=== PATIENT | male | born 1960 ===

== ENCOUNTER 2021-07-11 09:26 | Inpatient (IN) ==
[2021-07-11] MEDS ORDERED: Ipratropium/Albuterol Neb 3 ML ONE (09:30)
[2021-07-11] MEDS ORDERED: methylPREDNISolone 125 MG/2 ML VIAL IVP ONE (09:33)
[2021-07-11] MEDS ORDERED: Azithromycin 500 MG in 0.9 % Sodium Chloride 250 ML IVPB ONE (09:33)
[2021-07-11] MEDS ORDERED: Ipratropium/Albuterol Neb 3 ML IH ONE (09:33)
[2021-07-11] MEDS ORDERED: Isovue-370 500 ML BOTTLE IVP ONE (09:34)
[2021-07-11 09:49] LABS: Basophils # 0.1 K/mcL (0.0-0.2); Basophils % 0.3 %; Eosinophils # 0.3 K/mcL (0.0-0.6); Eosinophils % 1.4 %; Hematocrit 40.6 % (37.5-50.1); Immature Granulocytes % 1.1 % (0-4); Lymphocytes # 1.4 K/mcL (0.6-4.6); Lymphocytes % 7.4 %; Mean Corpuscular Hemoglobin 24.8 pg (28.0-33.3); Mean Corpuscular Volume 77.3 fL (83.0-100.0); Mean Platelet Volume 10.4 fL (9.4-12.4); Monocytes # 2.1 K/mcL (0.0-1.3); Monocytes % 11.3 %; Neutrophils # 14.9 K/mcL (1.6-8.9); Platelet Count 258 K/mcL (140-400); Red Blood Count 5.25 M/mcL (4.19-5.50); Red Cell Distribution Width 15.7 % (11.5-14.5); Segmented Neutrophils % 78.5 %; White Blood Count 18.9 K/mcL (4.3-11.1)
[2021-07-11] MEDS ORDERED: cefTRIAXone 1,000 MG in 0.9 % Sodium Chloride Mini Bag 100 ML IVPB ONE (09:50)
[2021-07-11 09:56] LABS: INR 1.3; Prothrombin Time 14.1 Seconds (9.4-12.1)
[2021-07-11 09:59] LABS: Activated Partial Thrombo Time 30.1 Seconds (26.0-36.0)
[2021-07-11 10:10] LABS: Alanine Aminotransferase 20 Units/L (7-52); Albumin 3.2 g/dL (3.5-5.7); Albumin/Globulin Ratio 0.9 (1.1-2.2); Alkaline Phosphatase 185 Units/L (34-104); Aspartate Amino Transferase 19 Units/L (13-39); BUN/Creatinine Ratio 37 (6-26); Bilirubin,Direct 0.3 mg/dL (0.0-0.2); Bilirubin,Indirect 0.5 mg/dL (0.0-1.0); Bilirubin,Total 0.8 mg/dL (0.3-1.0); Blood Urea Nitrogen 48 mg/dL (8-23); Calcium 10.2 mg/dL (8.6-10.3); Carbon Dioxide 29 mEq/L (23-29); Chloride 94 mEq/L (98-107); Globulin 3.5 g/dL (2.4-3.5); Glucose 128 mg/dL (70-105); Osmolality,Calculated 292 (280-300); Potassium 4.1 mEq/L (3.5-5.1); Sodium 134 mEq/L (136-145); Total Protein 6.7 g/dL (6.4-8.9); eGFR For African Americans > 60 (> 60); eGFR For Non-African Americans 57 (> 60)
[2021-07-11 10:24] LABS: Influenza A PCR Negative (Negative); Influenza B PCR Negative (Negative); Resp. Syncytial Virus PCR Negative (Negative)
[2021-07-11 10:26] LABS: ABG Base Excess 4 mEq/L (-2 to 3); ABG HCO3 28 mEq/L (21-27); ABG Oxygen Saturation 96 % (95-98); ABG PCO2 39 mmHg (35-45); ABG PH 7.47 pH Units (7.32-7.45); ABG PO2 77 mmHg (85-104); ABG TCO2 30 mEq/L (20-26)
[2021-07-11 10:27] LABS: Thyroid Stimulating Hormone 8.125 mcIU/mL (0.340-5.600); Troponin I 0.27 ng/mL (< 0.04)
[2021-07-11 10:39] LABS: SARS-CoV-2 by PCR (In House) Negative (Negative)
[2021-07-11 12:12] LABS: Bacteria,Urine Few per hpf (None-Few); Bilirubin,Urine Negative (Negative); Blood,Urine Large (Negative); Budding Yeast,Urine Few per hpf (None Seen); Clarity,Urine Ex.Turbid (Clear); Color,Urine Light-Brown (Yellow); Glucose,Urine (UA) Normal (Normal); Ketones,Urine Negative (Negative); Leukocyte Esterase,Urine Trace (Negative); Mucus,Urine Few per lpf (None-Few); Nitrite,Urine Negative (Negative); PH,Urine 5.5 pH Units (5.0-8.0); Protein,Urine 70 mg/dL (Neg-Trace); RBC,Urine TNTC per hpf (0-3); Specific Gravity,Urine 1.029 (1.010-1.025); Urobilinogen,Urine Normal (Normal); WBC,Urine 30-50 per hpf (0-3)
[2021-07-11] MEDS ORDERED: Naloxone 0.4 MG/ML INJ IVP PRN (13:54)
[2021-07-11] MEDS ORDERED: Ondansetron 4 MG/2 ML VIAL IVP PRN (13:54)
[2021-07-11] MEDS ORDERED: Morphine Sulfate 2 MG/ML SYRINGE IVP PRN ×2 (13:56→17:11)
[2021-07-11] MEDS: *HR* HYDROmorphone (PF) 1 MG/ML SYRINGE IVP PRN (14:20)
[2021-07-11] MEDS ORDERED: Ondansetron ODT 4 MG TAB.RAPDIS SL PRN (17:10)
[2021-07-11 17:13] LABS: Total Protein,Pleural Fluid 4.1 g/dL
[2021-07-11 17:20] LABS: RBC,Pleural Fluid 41000 RBC/mcL
[2021-07-11 17:49] LABS: Lactate Dehydrogenase 252 Units/L (140-271)
[2021-07-11] MEDS: *HR* OxyCODONE/APAP 10/325 TABLET PO PRN ×2 (18:07→22:05)
[2021-07-11] MEDS ORDERED: Ipratropium/Albuterol Neb 3 ML IH PRN (18:23)
[2021-07-11 19:24] LABS: Appearance of Pleural Fl Bloody (Clear); Basophils,Pleural Fluid 0 %; Eosinophils,Pleural Fluid 0 %
[2021-07-11] MEDS: *HR* Heparin 5,000 UNIT/ML VIAL SQ SCH (20:01)
[2021-07-11] MEDS: BuPROPion SR (12 HR) 150 MG TABLET PO SCH (20:01)
[2021-07-12 02:26] LABS: Basophils % 0.1 %; Eosinophils % 0.1 %; Hematocrit 36.3 % (37.5-50.1); Immature Granulocytes % 1.2 % (0-4); Lymphocytes # 0.9 K/mcL (0.6-4.6); Mean Corpuscular HGB Conc 31.1 g/dL (31.6-35.5); Mean Corpuscular Hemoglobin 24.2 pg (28.0-33.3); Mean Corpuscular Volume 77.7 fL (83.0-100.0); Mean Platelet Volume 10.4 fL (9.4-12.4); Monocytes # 1.4 K/mcL (0.0-1.3); Monocytes % 8.3 %; Neutrophils # 14.6 K/mcL (1.6-8.9); Platelet Count 239 K/mcL (140-400); Red Blood Count 4.67 M/mcL (4.19-5.50); Red Cell Distribution Width 15.7 % (11.5-14.5); Segmented Neutrophils % 85.3 %; White Blood Count 17.2 K/mcL (4.3-11.1)
[2021-07-12 02:35] LABS: BUN/Creatinine Ratio 38 (6-26); Blood Urea Nitrogen 47 mg/dL (8-23); Calcium 9.6 mg/dL (8.6-10.3); Carbon Dioxide 31 mEq/L (23-29); Chloride 98 mEq/L (98-107); Glucose 107 mg/dL (70-105); Osmolality,Calculated 291 (280-300); Potassium 4.2 mEq/L (3.5-5.1); Sodium 134 mEq/L (136-145); eGFR For African Americans > 60 (> 60); eGFR For Non-African Americans > 60 (> 60)
[2021-07-12] MEDS: *HR* OxyCODONE/APAP 10/325 TABLET PO PRN ×2 (02:35→06:44)
[2021-07-12 02:44] LABS: Hemoglobin 11.3 g/dL (12.9-16.9)
[2021-07-12] MEDS: *HR* Heparin 5,000 UNIT/ML VIAL SQ SCH ×2 (06:28→18:22)
[2021-07-12] MEDS: *HR* HYDROmorphone (PF) 1 MG/ML SYRINGE IVP PRN ×2 (06:28→22:29)
[2021-07-12] MEDS: predniSONE 20 MG TABLET PO SCH (08:58)
[2021-07-12] MEDS: Piperacillin/Tazobactam 3.375 GM in 0.9 % Sodium Chloride Mini Bag 100 ML IVPB SCH ×2 (08:58→15:56)
[2021-07-12] MEDS: BuPROPion SR (12 HR) 150 MG TABLET PO SCH ×2 (08:59→20:07)
[2021-07-12] MEDS: *HR* OxyCODONE/APAP 5/325 TABLET PO PRN ×3 (13:32→20:48)
[2021-07-12] MEDS ORDERED: Acetaminophen 325 MG TABLET PO PRN (15:24)
[2021-07-12] MEDS: Morphine Sulfate ER (12 HR) 15 MG TABLET.ER PO SCH (20:07)
[2021-07-13] MEDS: Piperacillin/Tazobactam 3.375 GM in 0.9 % Sodium Chloride Mini Bag 100 ML IVPB SCH ×4 (00:20→23:30)
[2021-07-13] MEDS: *HR* OxyCODONE/APAP 10/325 TABLET PO PRN ×4 (00:21→22:06)
[2021-07-13] MEDS: diazePAM 5 MG TABLET PO PRN ×2 (02:22→22:06)
[2021-07-13] MEDS: *HR* HYDROmorphone (PF) 1 MG/ML SYRINGE IVP PRN ×4 (02:59→22:06)
[2021-07-13 03:03] LABS: Basophils % 0.2 %; Eosinophils # 0.3 K/mcL (0.0-0.6); Eosinophils % 1.8 %; Hematocrit 37.3 % (37.5-50.1); Hemoglobin 11.9 g/dL (12.9-16.9); Immature Granulocytes % 1.1 % (0-4); Lymphocytes # 1.2 K/mcL (0.6-4.6); Lymphocytes % 6.3 %; Mean Corpuscular HGB Conc 31.9 g/dL (31.6-35.5); Mean Corpuscular Hemoglobin 24.7 pg (28.0-33.3); Mean Corpuscular Volume 77.5 fL (83.0-100.0); Mean Platelet Volume 9.9 fL (9.4-12.4); Monocytes # 2.1 K/mcL (0.0-1.3); Monocytes % 10.7 %; Neutrophils # 15.4 K/mcL (1.6-8.9); Platelet Count 261 K/mcL (140-400); Red Blood Count 4.81 M/mcL (4.19-5.50); Red Cell Distribution Width 15.5 % (11.5-14.5); Segmented Neutrophils % 79.9 %; White Blood Count 19.2 K/mcL (4.3-11.1)
[2021-07-13 03:35] LABS: BUN/Creatinine Ratio 32 (6-26); Blood Urea Nitrogen 35 mg/dL (8-23); Calcium 9.6 mg/dL (8.6-10.3); Carbon Dioxide 29 mEq/L (23-29); Chloride 100 mEq/L (98-107); Glucose 92 mg/dL (70-105); Magnesium 2.1 mg/dL (1.6-2.6); Osmolality,Calculated 284 (280-300); Phosphorous 3.3 mg/dL (2.7-4.5); Sodium 133 mEq/L (136-145); Troponin I 0.17 ng/mL (< 0.04); eGFR For African Americans > 60 (> 60); eGFR For Non-African Americans > 60 (> 60)
[2021-07-13] MEDS: *HR* Heparin 5,000 UNIT/ML VIAL SQ SCH (05:58)
[2021-07-13] MEDS: Morphine Sulfate ER (12 HR) 15 MG TABLET.ER PO SCH ×2 (08:19→19:48)
[2021-07-13] MEDS: predniSONE 20 MG TABLET PO SCH (08:19)
[2021-07-13] MEDS: BuPROPion SR (12 HR) 150 MG TABLET PO SCH ×2 (08:19→19:48)
[2021-07-13] MEDS ORDERED: *HR* FentaNYL (PF) 100 MCG/2 ML VIAL ONE (12:25)
[2021-07-13] MEDS ORDERED: *HR* FentaNYL (PF) 100 MCG/2 ML VIAL IVP ONE (12:42)
[2021-07-14] MEDS: *HR* HYDROmorphone (PF) 1 MG/ML SYRINGE IVP PRN ×3 (02:16→14:35)
[2021-07-14 02:18] LABS: BUN/Creatinine Ratio 30 (6-26); Blood Urea Nitrogen 34 mg/dL (8-23); Calcium 9.4 mg/dL (8.6-10.3); Carbon Dioxide 28 mEq/L (23-29); Chloride 99 mEq/L (98-107); Glucose 87 mg/dL (70-105); Osmolality,Calculated 283 (280-300); Phosphorous 3.7 mg/dL (2.7-4.5); Potassium 4.1 mEq/L (3.5-5.1); Sodium 133 mEq/L (136-145); eGFR For African Americans > 60 (> 60); eGFR For Non-African Americans > 60 (> 60)
[2021-07-14 02:34] LABS: Basophils % 0.2 %; Eosinophils # 0.3 K/mcL (0.0-0.6); Eosinophils % 1.4 %; Hematocrit 40.4 % (37.5-50.1); Hemoglobin 12.3 g/dL (12.9-16.9); Immature Granulocytes % 0.9 % (0-4); Lymphocytes # 1.5 K/mcL (0.6-4.6); Lymphocytes % 7.7 %; Mean Corpuscular HGB Conc 30.4 g/dL (31.6-35.5); Mean Corpuscular Hemoglobin 24.2 pg (28.0-33.3); Mean Corpuscular Volume 79.4 fL (83.0-100.0); Mean Platelet Volume 10.1 fL (9.4-12.4); Monocytes # 1.9 K/mcL (0.0-1.3); Monocytes % 10.3 %; Platelet Count 256 K/mcL (140-400); Red Blood Count 5.09 M/mcL (4.19-5.50); Red Cell Distribution Width 15.9 % (11.5-14.5); Segmented Neutrophils % 79.5 %; White Blood Count 18.8 K/mcL (4.3-11.1)
[2021-07-14] MEDS: *HR* OxyCODONE/APAP 10/325 TABLET PO PRN ×2 (06:27→14:35)
[2021-07-14] MEDS: Piperacillin/Tazobactam 3.375 GM in 0.9 % Sodium Chloride Mini Bag 100 ML IVPB SCH ×2 (08:00→16:17)
[2021-07-14] MEDS: BuPROPion SR (12 HR) 150 MG TABLET PO SCH ×2 (08:00→21:39)
[2021-07-14] MEDS: predniSONE 20 MG TABLET PO SCH (08:00)
[2021-07-14] MEDS: Morphine Sulfate ER (12 HR) 15 MG TABLET.ER PO SCH (08:01)
[2021-07-14] MEDS: *HR* Heparin 5,000 UNIT/ML VIAL SQ SCH (17:47)
[2021-07-14] MEDS: Morphine Sulfate ER (12 HR) 30 MG TABLET.ER PO SCH (17:47)
[2021-07-14] MEDS ORDERED: polyethylene glycoL 3350 17 GM POWD.PACK PO PRN (17:52)
[2021-07-14] MEDS: Sennosides 8.6 MG TABLET PO SCH (21:39)
[2021-07-14] MEDS: *HR* OxyCODONE/APAP 5/325 TABLET PO PRN (21:39)
[2021-07-15] MEDS: Piperacillin/Tazobactam 3.375 GM in 0.9 % Sodium Chloride Mini Bag 100 ML IVPB SCH ×4 (00:12→23:24)
[2021-07-15] MEDS: *HR* OxyCODONE/APAP 5/325 TABLET PO PRN (02:11)
[2021-07-15] MEDS: Morphine Sulfate ER (12 HR) 30 MG TABLET.ER PO SCH ×2 (05:10→17:32)
[2021-07-15] MEDS: *HR* Heparin 5,000 UNIT/ML VIAL SQ SCH ×2 (05:10→17:32)
[2021-07-15] MEDS: *HR* OxyCODONE/APAP 10/325 TABLET PO PRN ×3 (07:59→20:05)
[2021-07-15] MEDS: predniSONE 20 MG TABLET PO SCH (07:59)
[2021-07-15] MEDS: BuPROPion SR (12 HR) 150 MG TABLET PO SCH ×2 (08:00→20:05)
[2021-07-15 08:41] LABS: Basophils # 0.1 K/mcL (0.0-0.2); Basophils % 0.3 %; Eosinophils # 0.9 K/mcL (0.0-0.6); Eosinophils % 3.6 %; Hematocrit 41.2 % (37.5-50.1); Hemoglobin 13.1 g/dL (12.9-16.9); Lymphocytes # 1.6 K/mcL (0.6-4.6); Lymphocytes % 6.5 %; Mean Corpuscular HGB Conc 31.8 g/dL (31.6-35.5); Mean Corpuscular Hemoglobin 24.6 pg (28.0-33.3); Mean Corpuscular Volume 77.4 fL (83.0-100.0); Mean Platelet Volume 10.3 fL (9.4-12.4); Monocytes # 2.2 K/mcL (0.0-1.3); Monocytes % 8.7 %; Neutrophils # 19.9 K/mcL (1.6-8.9); Platelet Count 301 K/mcL (140-400); Red Blood Count 5.32 M/mcL (4.19-5.50); Segmented Neutrophils % 79.9 %; White Blood Count 24.9 K/mcL (4.3-11.1)
[2021-07-15 09:00] LABS: BUN/Creatinine Ratio 27 (6-26); Blood Urea Nitrogen 28 mg/dL (8-23); Calcium 10.1 mg/dL (8.6-10.3); Carbon Dioxide 27 mEq/L (23-29); Chloride 98 mEq/L (98-107); Glucose 102 mg/dL (70-105); Osmolality,Calculated 284 (280-300); Sodium 134 mEq/L (136-145); eGFR For African Americans > 60 (> 60); eGFR For Non-African Americans > 60 (> 60)
[2021-07-15] MEDS: *HR* HYDROmorphone (PF) 1 MG/ML SYRINGE IVP PRN ×2 (15:57→23:24)
[2021-07-15] MEDS: Sennosides 8.6 MG TABLET PO SCH (23:01)
[2021-07-16 01:08] LABS: Basophils # 0.1 K/mcL (0.0-0.2); Basophils % 0.2 %; Eosinophils # 0.4 K/mcL (0.0-0.6); Eosinophils % 1.8 %; Hematocrit 39.7 % (37.5-50.1); Hemoglobin 12.7 g/dL (12.9-16.9); Immature Granulocytes % 0.9 % (0-4); Lymphocytes # 1.5 K/mcL (0.6-4.6); Mean Corpuscular Hemoglobin 24.7 pg (28.0-33.3); Mean Corpuscular Volume 77.2 fL (83.0-100.0); Mean Platelet Volume 10.5 fL (9.4-12.4); Monocytes # 2.1 K/mcL (0.0-1.3); Monocytes % 9.4 %; Neutrophils # 17.7 K/mcL (1.6-8.9); Platelet Count 300 K/mcL (140-400); Red Blood Count 5.14 M/mcL (4.19-5.50); Red Cell Distribution Width 16.2 % (11.5-14.5); Segmented Neutrophils % 80.7 %; White Blood Count 21.9 K/mcL (4.3-11.1)
[2021-07-16 01:36] LABS: BUN/Creatinine Ratio 28 (6-26); Blood Urea Nitrogen 27 mg/dL (8-23); Calcium 9.8 mg/dL (8.6-10.3); Carbon Dioxide 27 mEq/L (23-29); Chloride 99 mEq/L (98-107); Glucose 96 mg/dL (70-105); Osmolality,Calculated 285 (280-300); Potassium 4.2 mEq/L (3.5-5.1); Sodium 135 mEq/L (136-145); eGFR For African Americans > 60 (> 60); eGFR For Non-African Americans > 60 (> 60)
[2021-07-16] MEDS: *HR* OxyCODONE/APAP 5/325 TABLET PO PRN (03:11)
[2021-07-16] MEDS: Morphine Sulfate ER (12 HR) 30 MG TABLET.ER PO SCH ×2 (05:33→18:07)
[2021-07-16] MEDS: *HR* Heparin 5,000 UNIT/ML VIAL SQ SCH ×2 (05:33→18:07)
[2021-07-16] MEDS: predniSONE 20 MG TABLET PO SCH (08:52)
[2021-07-16] MEDS: BuPROPion SR (12 HR) 150 MG TABLET PO SCH ×2 (08:52→20:14)
[2021-07-16] MEDS: Piperacillin/Tazobactam 3.375 GM in 0.9 % Sodium Chloride Mini Bag 100 ML IVPB SCH ×2 (08:52→15:46)
[2021-07-16] MEDS: *HR* OxyCODONE/APAP 10/325 TABLET PO PRN ×3 (08:52→20:14)
[2021-07-16] MEDS: diazePAM 5 MG TABLET PO PRN ×2 (08:54→20:15)
[2021-07-16] MEDS: *HR* HYDROmorphone (PF) 1 MG/ML SYRINGE IVP PRN (12:29)
[2021-07-16] MEDS: Sennosides 8.6 MG TABLET PO SCH (20:21)
[2021-07-17] MEDS: *HR* OxyCODONE/APAP 10/325 TABLET PO PRN ×5 (00:24→20:41)
[2021-07-17] MEDS: Piperacillin/Tazobactam 3.375 GM in 0.9 % Sodium Chloride Mini Bag 100 ML IVPB SCH ×4 (00:24→22:30)
[2021-07-17 01:50] LABS: Basophils % 0.2 %; Eosinophils # 0.3 K/mcL (0.0-0.6); Eosinophils % 1.4 %; Hematocrit 39.8 % (37.5-50.1); Hemoglobin 12.3 g/dL (12.9-16.9); Immature Granulocytes % 0.9 % (0-4); Lymphocytes # 1.5 K/mcL (0.6-4.6); Mean Corpuscular HGB Conc 30.9 g/dL (31.6-35.5); Mean Corpuscular Hemoglobin 24.2 pg (28.0-33.3); Mean Corpuscular Volume 78.2 fL (83.0-100.0); Mean Platelet Volume 9.9 fL (9.4-12.4); Monocytes # 2.1 K/mcL (0.0-1.3); Monocytes % 9.6 %; Neutrophils # 17.3 K/mcL (1.6-8.9); Platelet Count 252 K/mcL (140-400); Red Blood Count 5.09 M/mcL (4.19-5.50); Red Cell Distribution Width 16.3 % (11.5-14.5); Segmented Neutrophils % 80.9 %; White Blood Count 21.4 K/mcL (4.3-11.1)
[2021-07-17] MEDS: *HR* Heparin 5,000 UNIT/ML VIAL SQ SCH ×2 (04:58→17:57)
[2021-07-17] MEDS: Morphine Sulfate ER (12 HR) 30 MG TABLET.ER PO SCH ×2 (04:58→17:57)
[2021-07-17] MEDS: BuPROPion SR (12 HR) 150 MG TABLET PO SCH ×2 (09:38→20:41)
[2021-07-17] MEDS: predniSONE 20 MG TABLET PO SCH (09:39)
[2021-07-17] MEDS: *HR* HYDROmorphone (PF) 1 MG/ML SYRINGE IVP PRN (12:41)
[2021-07-17] MEDS: diazePAM 5 MG TABLET PO PRN (20:41)
[2021-07-17] MEDS: Sennosides 8.6 MG TABLET PO SCH (20:41)
[2021-07-17] MEDS ORDERED: *HR* HYDROmorphone (PF) 1 MG/ML SYRINGE IVP ONE (22:20)
[2021-07-17] MEDS: *HR* OxyCODONE/APAP 5/325 TABLET PO PRN (22:30)
[2021-07-18] MEDS: *HR* OxyCODONE/APAP 10/325 TABLET PO PRN ×3 (03:21→12:30)
[2021-07-18] MEDS: *HR* Heparin 5,000 UNIT/ML VIAL SQ SCH ×2 (04:53→17:42)
[2021-07-18] MEDS: Morphine Sulfate ER (12 HR) 30 MG TABLET.ER PO SCH (04:53)
[2021-07-18 05:59] LABS: Basophils % 0.1 %; Eosinophils # 0.4 K/mcL (0.0-0.6); Hematocrit 38.5 % (37.5-50.1); Hemoglobin 12.3 g/dL (12.9-16.9); Lymphocytes # 1.6 K/mcL (0.6-4.6); Lymphocytes % 7.3 %; Mean Corpuscular HGB Conc 31.9 g/dL (31.6-35.5); Mean Corpuscular Hemoglobin 24.7 pg (28.0-33.3); Mean Corpuscular Volume 77.5 fL (83.0-100.0); Mean Platelet Volume 10.4 fL (9.4-12.4); Monocytes # 2.3 K/mcL (0.0-1.3); Monocytes % 10.6 %; Neutrophils # 17.4 K/mcL (1.6-8.9); Platelet Count 295 K/mcL (140-400); Red Blood Count 4.97 M/mcL (4.19-5.50); Red Cell Distribution Width 16.5 % (11.5-14.5)
[2021-07-18 06:20] LABS: BUN/Creatinine Ratio 25 (6-26); Blood Urea Nitrogen 25 mg/dL (8-23); Calcium 10.1 mg/dL (8.6-10.3); Carbon Dioxide 30 mEq/L (23-29); Chloride 96 mEq/L (98-107); Glucose 67 mg/dL (70-105); Osmolality,Calculated 287 (280-300); Potassium 3.6 mEq/L (3.5-5.1); Sodium 137 mEq/L (136-145); eGFR For African Americans > 60 (> 60); eGFR For Non-African Americans > 60 (> 60)
[2021-07-18] MEDS: BuPROPion SR (12 HR) 150 MG TABLET PO SCH ×2 (07:30→21:42)
[2021-07-18] MEDS: predniSONE 20 MG TABLET PO SCH (07:30)
[2021-07-18] MEDS: Piperacillin/Tazobactam 3.375 GM in 0.9 % Sodium Chloride Mini Bag 100 ML IVPB SCH ×2 (07:32→16:13)
[2021-07-18] MEDS: *HR* OxyCODONE Immed Rel 5 MG TABLET PO PRN ×2 (16:13→21:42)
[2021-07-18] MEDS: Morphine Sulfate ER (12 HR) 15 MG TABLET.ER PO SCH (17:42)
[2021-07-18] MEDS ORDERED: Morphine Sulfate ER (12 HR) 30 MG TABLET.ER PO SCH (18:00)
[2021-07-18] MEDS: Sennosides 8.6 MG TABLET PO SCH (21:55)
[2021-07-19] MEDS: Piperacillin/Tazobactam 3.375 GM in 0.9 % Sodium Chloride Mini Bag 100 ML IVPB SCH ×3 (00:05→17:16)
[2021-07-19] MEDS: *HR* OxyCODONE/APAP 5/325 TABLET PO PRN ×3 (01:23→13:57)
[2021-07-19] MEDS: *HR* OxyCODONE Immed Rel 5 MG TABLET PO PRN ×4 (03:39→23:29)
[2021-07-19] MEDS: *HR* Heparin 5,000 UNIT/ML VIAL SQ SCH ×2 (06:30→17:23)
[2021-07-19] MEDS: Morphine Sulfate ER (12 HR) 15 MG TABLET.ER PO SCH ×2 (06:30→18:12)
[2021-07-19 08:54] LABS: Hematocrit 41.2 % (37.5-50.1); Hemoglobin 13.2 g/dL (12.9-16.9); Mean Corpuscular Volume 77.9 fL (83.0-100.0); Mean Platelet Volume 10.2 fL (9.4-12.4); Platelet Count 314 K/mcL (140-400); Red Blood Count 5.29 M/mcL (4.19-5.50); Red Cell Distribution Width 16.9 % (11.5-14.5); White Blood Count 29.9 K/mcL (4.3-11.1)
[2021-07-19 09:21] LABS: Eosinophils # 1.2 K/mcL (0.0-0.6); Lymphocytes # 4.2 K/mcL (0.6-4.6); Monocytes # 2.1 K/mcL (0.0-1.3); Neutrophils # 22.4 K/mcL (1.6-8.9)
[2021-07-19 09:24] LABS: Platelet Estimate Normal (Normal)
[2021-07-19] MEDS: predniSONE 20 MG TABLET PO SCH (09:43)
[2021-07-19] MEDS: BuPROPion SR (12 HR) 150 MG TABLET PO SCH ×2 (09:43→20:06)
[2021-07-19] MEDS: Sennosides 8.6 MG TABLET PO SCH (20:05)
[2021-07-19] MEDS ORDERED: Gadolinium Contrast Agent (WT Based) IV PRN (21:33)
[2021-07-20] MEDS: Piperacillin/Tazobactam 3.375 GM in 0.9 % Sodium Chloride Mini Bag 100 ML IVPB SCH ×3 (01:17→17:16)
[2021-07-20] MEDS: *HR* OxyCODONE/APAP 5/325 TABLET PO PRN ×2 (01:24→16:08)
[2021-07-20] MEDS: *HR* OxyCODONE Immed Rel 5 MG TABLET PO PRN ×3 (03:29→13:24)
[2021-07-20] MEDS: Morphine Sulfate ER (12 HR) 15 MG TABLET.ER PO SCH ×2 (06:00→17:06)
[2021-07-20] MEDS: *HR* Heparin 5,000 UNIT/ML VIAL SQ SCH ×2 (06:01→17:17)
[2021-07-20 06:43] LABS: Basophils % 0.2 %; Eosinophils # 0.2 K/mcL (0.0-0.6); Hematocrit 40.7 % (37.5-50.1); Hemoglobin 13.4 g/dL (12.9-16.9); Lymphocytes # 1.8 K/mcL (0.6-4.6); Lymphocytes % 7.5 %; Mean Corpuscular HGB Conc 32.9 g/dL (31.6-35.5); Mean Corpuscular Hemoglobin 25.5 pg (28.0-33.3); Mean Corpuscular Volume 77.5 fL (83.0-100.0); Mean Platelet Volume 10.7 fL (9.4-12.4); Monocytes # 2.4 K/mcL (0.0-1.3); Monocytes % 10.2 %; Neutrophils # 19.1 K/mcL (1.6-8.9); Platelet Count 322 K/mcL (140-400); Red Blood Count 5.25 M/mcL (4.19-5.50); Red Cell Distribution Width 16.8 % (11.5-14.5); Segmented Neutrophils % 80.1 %; White Blood Count 23.9 K/mcL (4.3-11.1)
[2021-07-20 07:01] LABS: BUN/Creatinine Ratio 22 (6-26); Blood Urea Nitrogen 24 mg/dL (8-23); Calcium 10.7 mg/dL (8.6-10.3); Carbon Dioxide 30 mEq/L (23-29); Chloride 95 mEq/L (98-107); Glucose 82 mg/dL (70-105); Magnesium 2.1 mg/dL (1.6-2.6); Osmolality,Calculated 281 (280-300); Phosphorous 3.8 mg/dL (2.7-4.5); Potassium 3.9 mEq/L (3.5-5.1); Sodium 134 mEq/L (136-145); eGFR For African Americans > 60 (> 60); eGFR For Non-African Americans > 60 (> 60)
[2021-07-20] MEDS: predniSONE 20 MG TABLET PO SCH (08:26)
[2021-07-20] MEDS: diazePAM 5 MG TABLET PO PRN (08:26)
[2021-07-20] MEDS: BuPROPion SR (12 HR) 150 MG TABLET PO SCH (08:26)
[2021-07-20 11:54] VITALS: BP 111/80; PULSE 107; TEMP 97.5; O2SAT 97
== END 2021-07-20 17:50 | disposition home health service (06) | DRG 166 ==
LOC: EMEROOARM 09:26 → 3NENU 15:29 → SUATTDRO 15:29 → 3NENU 16:57
PROVIDERS: ADMIT Internal Medicine; ATTEND Internal Medicine